=== PATIENT | male | born 1980 | race African-American/Black ===

== ENCOUNTER 2018-10-29 14:58 | Observation (INO) ==
[2018-10-29] MEDS ORDERED: ENOXAPARIN 100 MG/ML SYRINGE SUBCUT STA (16:02)
[2018-10-29] MEDS ORDERED: ASPIRIN 325 MG TABLET PO STA (16:02)
[2018-10-29 16:33] LABS: Basophils # 0.1 10*3/uL (0.0-0.2); Basophils % 0.6 % (0.0-0.8); Eosinophils # 0.2 10*3/uL (0.0-0.87); Eosinophils % 2.4 % (0.00-10.9); Hemoglobin 15.5 GM/DL (14.0-18.0); Immature Granulocytes % 0.4 %; Immature Granulocytes Absolute 0.03 #; Lymphocytes # 2.7 10*3/uL (1.4-4.0); Lymphocytes % 34.1 % (21.2-54.2); Mean Corpuscular HGB Conc 33.7 GM/DL (32-36); Mean Corpuscular Volume 101.8 FL (87-102); Monocytes % 7.5 % (1.7-12.7); Platelet Count 279 T/CUMM (130-400); Red Blood Count 4.52 MC/CUMM (3.8-5.5); Red Cell Distribution Width 11.6 % (9.3-17.3); White Blood Count 7.9 T/CUMM (4-12)
[2018-10-29 16:59] LABS: Albumin 3.9 G/DL (3.4-5.0); Bilirubin,Total 0.8 MG/DL (0.2-1.0); Calcium 9.3 MG/DL (8.5-10.1); Osmolality,Calculated 275.7 MOS/KG (273-304); Total Protein 7.7 G/DL (6.4-8.3)
[2018-10-29] MEDS ORDERED: NITROGLYCERIN SL 0.4 MG TABLET SL PRN (18:23)
[2018-10-29] MEDS ORDERED: ACETAMINOPHEN 325 MG TABLET PO PRN (18:23)
[2018-10-29] MEDS ORDERED: NICOTINE 21 MG/24 HR PATCH TRANSDERM PRN (18:23)
[2018-10-29] MEDS ORDERED: ONDANSETRON 4 MG/2 ML VIAL IV PRN (18:23)
[2018-10-29] MEDS ORDERED: ALUM/MAG/SIMETH/LIDO VISC 1:1 30 ML BOTTLE PO PRN (18:23)
[2018-10-29] MEDS ORDERED: CITALOPRAM 20 MG TABLET PO PRN (18:30)
[2018-10-29] MEDS ORDERED: ATORVASTATIN 40 MG TABLET PO SCH (21:00)
[2018-10-30 05:22] LABS: Basophils # 0.1 10*3/uL (0.0-0.2); Eosinophils # 0.2 10*3/uL (0.0-0.87); Eosinophils % 2.7 % (0.00-10.9); Hematocrit 46.2 VOL% (42.0-52.0); Hemoglobin 15.7 GM/DL (14.0-18.0); Immature Granulocytes % 0.3 %; Immature Granulocytes Absolute 0.02 #; Lymphocytes # 2.9 10*3/uL (1.4-4.0); Lymphocytes % 45.8 % (21.2-54.2); Mean Corpuscular Volume 101.1 FL (87-102); Mean Platelet Volume 10.2 FL (9.6-12.0); Monocytes % 9.8 % (1.7-12.7); Neutrophils % 40.4 % (38.7-73.9); Platelet Count 262 T/CUMM (130-400); Red Blood Count 4.57 MC/CUMM (3.8-5.5); Red Cell Distribution Width 11.4 % (9.3-17.3); White Blood Count 6.2 T/CUMM (4-12)
[2018-10-30 05:46] LABS: Risk Ratio 7.11; VLDL CHOLESTEROL 135.6 MG/DL
[2018-10-30 05:59] LABS: Osmolality,Calculated 273.8 MOS/KG (273-304); Thyroid Stimulating Hormone 2.19 uIU/ml (0.358-3.74)
[2018-10-30] MEDS ORDERED: ENOXAPARIN 40 MG/0.4 ML SYRINGE SUBCUT SCH (09:00)
[2018-10-30] MEDS ORDERED: PANTOPRAZOLE 40 MG TABLET PO SCH ×2 (09:00)
[2018-10-30] MEDS ORDERED: MONTELUKAST 10 MG TABLET PO SCH (09:00)
[2018-10-30] MEDS ORDERED: hydroCHLOROthiazide 25 MG TABLET PO SCH (09:00)
[2018-10-30] MEDS ORDERED: NEBIVOLOL 10 MG TABLET PO SCH (09:00)
[2018-10-30] MEDS ORDERED: LISINOPRIL 5 MG TABLET PO SCH (09:00)
[2018-10-30] MEDS ORDERED: VALSARTAN 160 MG TABLET PO SCH (09:00)
[2018-10-30] MEDS ORDERED: amLODIPine 10 MG TABLET PO SCH (09:00)
[2018-10-30 11:39] VITALS: BP 123/87
== END 2018-10-30 15:25 | disposition home or self-care (01) ==
LOC: N.EDINP 14:58 → N.ED 14:58 → N.TELEN 21:29
PROVIDERS: ADMIT Hospitalist; ATTEND Hospitalist

== ENCOUNTER 2020-05-04 12:31 | Observation (INO) ==
[2020-05-04] MEDS ORDERED: ALUM/MAG/SIMETH/LIDO VISC 1:1 30 ML BOTTLE PO STA (13:00)
[2020-05-04] MEDS ORDERED: ASPIRIN 325 MG TABLET PO STA (13:00)
[2020-05-04 13:25] LABS: Basophils # 0.1 10*3/uL (0.0-0.2); Basophils % 0.6 % (0.0-0.8); Eosinophils # 0.2 10*3/uL (0.0-0.87); Eosinophils % 2.1 % (0.00-10.9); Hematocrit 43.4 VOL% (42.0-52.0); Hemoglobin 15.3 GM/DL (14.0-18.0); Immature Granulocytes % 0.3 %; Immature Granulocytes Absolute 0.03 #; Lymphocytes # 2.8 10*3/uL (1.4-4.0); Lymphocytes % 28.4 % (21.2-54.2); Mean Corpuscular HGB Conc 35.3 GM/DL (32-36); Mean Corpuscular Volume 99.1 FL (87-102); Monocytes % 6.5 % (1.7-12.7); Neutrophils % 62.1 % (38.7-73.9); Platelet Count 319 T/CUMM (130-400); Red Blood Count 4.38 MC/CUMM (3.8-5.5); Red Cell Distribution Width 11.6 % (9.3-17.3); White Blood Count 9.9 T/CUMM (4-12)
[2020-05-04 13:35] LABS: PT Patient Result 10.6 SECS (9.8-11.9); Partial Thromboplastin Time 29.7 SECS (23.9-33.8)
[2020-05-04 13:50] LABS: Albumin 3.8 G/DL (3.4-5.0); Bilirubin,Total 0.9 MG/DL (0.2-1.0); Calcium 8.8 MG/DL (8.5-10.1); Osmolality,Calculated 271.1 MOS/KG (273-304); Potassium 3.6 MMOL/L (3.5-5.1); Total Protein 7.7 G/DL (6.4-8.3)
[2020-05-04] MEDS ORDERED: hydrALAZINE 20 MG/1 ML VIAL IV PRN (16:01)
[2020-05-04] MEDS ORDERED: ACETAMINOPHEN 325 MG TABLET PO PRN (16:01)
[2020-05-04] MEDS ORDERED: ONDANSETRON 4 MG/2 ML VIAL IV PRN (16:01)
[2020-05-04] MEDS ORDERED: DEXTROSE 50% 25 GM/50 ML VIAL IV PRN (16:01)
[2020-05-04] MEDS ORDERED: GLUCAGON 1 MG VIAL IM PRN (16:01)
[2020-05-04] MEDS ORDERED: LORazepam 2 MG/1 ML VIAL IV PRN (16:19)
[2020-05-04] MEDS ORDERED: ENOXAPARIN 40 MG/0.4 ML SYRINGE SUBCUT SCH (16:30)
[2020-05-04] MEDS ORDERED: SODIUM CHLORIDE 0.9% 1,000 ML IV SCH (16:30)
[2020-05-04 16:46] LABS: Thyroid Stimulating Hormone 1.29 uIU/ml (0.358-3.74); VLDL CHOLESTEROL 87.6 MG/DL
[2020-05-04] MEDS: PANTOPRAZOLE 40 MG TABLET PO SCH (20:56)
[2020-05-05 05:55] LABS: Basophils # 0.1 10*3/uL (0.0-0.2); Eosinophils # 0.3 10*3/uL (0.0-0.87); Eosinophils % 3.7 % (0.00-10.9); Hematocrit 38.5 VOL% (42.0-52.0); Hemoglobin 13.7 GM/DL (14.0-18.0); Immature Granulocytes % 0.3 %; Immature Granulocytes Absolute 0.02 #; Lymphocytes # 2.7 10*3/uL (1.4-4.0); Lymphocytes % 38.8 % (21.2-54.2); Mean Corpuscular HGB Conc 35.6 GM/DL (32-36); Mean Corpuscular Volume 99.7 FL (87-102); Mean Platelet Volume 9.9 FL (9.6-12.0); Monocytes % 8.3 % (1.7-12.7); Neutrophils % 47.9 % (38.7-73.9); Platelet Count 263 T/CUMM (130-400); Red Blood Count 3.86 MC/CUMM (3.8-5.5); Red Cell Distribution Width 11.6 % (9.3-17.3); White Blood Count 6.8 T/CUMM (4-12)
[2020-05-05 06:27] LABS: Calcium 8.4 MG/DL (8.5-10.1); Osmolality,Calculated 277.5 MOS/KG (273-304); Potassium 3.3 MMOL/L (3.5-5.1)
[2020-05-05 08:41] LABS: Barbiturates Screen,Urine Negative (Negative); Benzodiazepines Screen,Urine Negative (Negative); Cannabinoid Screen,Urine Negative (Negative); Opiate Screen,Urine Negative (Negative); Phencyclidine Screen,Urine Negative (Negative)
[2020-05-05] MEDS ORDERED: NEBIVOLOL 10 MG TABLET PO SCH (09:00)
[2020-05-05] MEDS ORDERED: AMLODIPINE VALSARTAN PO SCH (09:00)
[2020-05-05] MEDS ORDERED: ASPIRIN CHEW 81 MG TABLET PO SCH (09:00)
[2020-05-05] MEDS ORDERED: LACTULOSE 20 GM/30 ML UDCUP PO ONE (09:07)
[2020-05-05] MEDS ORDERED: POTASSIUM CHLORIDE 20 MEQ TABLET PO ONE (09:20)
[2020-05-05] MEDS: PANTOPRAZOLE 40 MG TABLET PO SCH (10:02)
[2020-05-05 12:33] VITALS: BP 129/85
== END 2020-05-05 13:45 | disposition home or self-care (01) ==
LOC: N.ED 12:31 → N.EDINP 12:31 → N.TELES 18:25
PROVIDERS: ADMIT Internal Medicine; ATTEND Internal Medicine